=== PATIENT | male | born 1995 ===

== ENCOUNTER 2018-07-31 21:56 | Emergency (ER) | payer OTHER ==
[2018-07-31 22:05] VITALS: BP 132/74
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
== END 2018-07-31 22:10 ==
LOC: EDUNIT#
DX: R04.0 Epistaxis (principal); Y04.0XXA Assault by unarmed brawl or fight, initial encounter

== ENCOUNTER 2018-08-03 16:13 | Emergency (ER) | payer OTHER ==
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
[2018-08-03] MEDS ORDERED: ACETAMINOPHEN 500 MG TAB PO ONE (17:12)
[2018-08-03] MEDS ORDERED: IBUPROFEN 800 MG TAB PO ONE (17:12)
[2018-08-03 17:29] VITALS: BP 136/75
== END 2018-08-03 17:28 | disposition home or self-care (01) ==
DX: S09.90XA Unspecified injury of head, initial encounter (principal); S51.851D Open bite of right forearm, subsequent encounter; S60.512D Abrasion of left hand, subsequent encounter; S60.511D Abrasion of right hand, subsequent encounter; S00.10XD Contusion of unspecified eyelid and periocular area, subsequent encounter; Y04.1XXD Assault by human bite, subsequent encounter; W54.0XXD Bitten by dog, subsequent encounter; Y04.0XXD Assault by unarmed brawl or fight, subsequent encounter